=== PATIENT | male | born 1965 | race Two or more races ===

== ENCOUNTER 2024-07-02 18:09 | Inpatient (IN) | payer MEDICARE, OTHER ==
[~2024-07-02] VITALS: Ht 175.3 cm; Wt 117.0 kg
[2024-07-02 19:17] LABS: BASOPHILS # (AUTO) 0.1 K/uL (0.0-0.2); BASOPHILS % (AUTO) 0.5 % (0.0-2.0); EOSINOPHILS # (AUTO) 0.2 K/uL (0.0-0.7); EOSINOPHILS % (AUTO) 1.7 % (0.0-6.0); HEMATOCRIT 46 % (39-51); HEMOGLOBIN 15.3 g/dL (13.5-17.5); LYMPHOCYTES # (AUTO) 2.1 K/uL (0.8-4.8); MEAN CORPUSCULAR HEMOGLOBIN 31 PG (26.0-33.0); MEAN CORPUSCULAR HGB CONC 34 g/dl (31.0-36.0); MEAN CORPUSCULAR VOLUME 91 fL (80-96); MONOCYTES # (AUTO) 1.1 K/uL (0.1-1.30); MONOCYTES % (AUTO) 9.5 % (2.0-12.0); NEUTROPHILS # (AUTO) 7.7 K/uL (1.8-8.9); NEUTROPHILS % (AUTO) 69.3 % (43.0-81.0); PLATELET COUNT (AUTO) 268 K/uL (150-450); RED BLOOD CELL COUNT(AUTO) 5.02 MIL/uL (4.5-6.0); RED CELL DISTRIBUTION WIDTH 14.4 % (11.5-15.0); WHITE BLOOD COUNT (AUTO) 11.1 K/uL (4.3-11.0)
[2024-07-02 19:27] LABS: CALCIUM, SERUM 8.7 mg/dL (8.5-10.1); CARBON DIOXIDE 28 mmol/L (21-32); CHLORIDE 107 mmol/L (98-107); CREATININE 0.9 mg/dL (0.6-1.3); GLUCOSE 129 mg/dL (74-106); POTASSIUM 4.3 mmol/L (3.5-5.1); SODIUM SERUM 141 mmol/L (136-145); UREA NITROGEN, BLOOD 15 mg/dL (7-18)
[2024-07-02 19:33] LABS: ALANINE AMINOTRANSFERASE 25 U/L (12-78); ALBUMIN 3.1 g/dL (3.4-5.0); ALCOHOL, BLOOD < 3 mg/dL (0-10); ALKALINE PHOSPHATASE 83 U/L (46-116); ASPARTATE AMINOTRANSFERASE 16 U/L (15-37); BILIRUBIN,DIRECT 0.1 mg/dL (0.0-0.2); BILIRUBIN,TOTAL 0.5 mg/dL (0.2-1.0); TOTAL PROTEIN, SERUM 6.4 g/dL (6.4-8.2)
[2024-07-02 19:39] LABS: ACETAMINOPHEN <10 ug/ml (10-30); SALICYLATE 0.9 mg/dL (2.8-20.0)
[2024-07-02 20:14] LABS: APPEARANCE,URINE Slightly Cloudy (CLEAR); BILIRUBIN,URINE Negative (NEGATIVE); BLOOD, URINE Moderate Ery/uL (NEGATIVE); COLOR,URINE YELLOW (YELLOW); KETONES,URINE Trace mg/dL (NEGATIVE); LEUKOCYTE ESTERASE ,URINE Negative (NEGATIVE); NITRITE, URINE Negative (NEGATIVE); PH,URINE 8.5 (5.0-8.0); PROTEIN,URINE Negative (NEGATIVE); UGLUCOSE Negative (NEGATIVE)
[2024-07-02 20:19] LABS: ADD URINE CULTURE NO; BACTERIA,URINE 1+ /HPF (None Seen); SQUAMOUS EPITHELIAL CELL,UR None Seen /HPF (None Seen)
[2024-07-02 20:24] LABS: AMPHETAMINE, URINE NEGATIVE (NEGATIVE); BARBITURATE, URINE NEGATIVE (NEGATIVE); BENZODIAZEPINE, URINE NEGATIVE (NEGATIVE); CANNABINOID, URINE NEGATIVE (NEGATIVE); COCCAINE, URINE NEGATIVE (NEGATIVE); OPIATE, URINE NEGATIVE (NEGATIVE); PHENCYCLIDINE SCREEN,URINE NEGATIVE (NEGATIVE)
[2024-07-02] MEDS ORDERED: CEFTRIAXONE 1GM BAG (ER ONLY) 50 ML IV ONE (21:10)
[2024-07-02] MEDS: CEFTRIAXONE 1 G in IV D5W 50 ML IV ONE (21:11)
[2024-07-03] MEDS ORDERED: METO50TA16 PO (07:35)
[2024-07-03] MEDS ORDERED: NA P133E RC (07:35)
[2024-07-03] MEDS ORDERED: VITA400C74 PO (07:35)
[2024-07-03] MEDS ORDERED: ASPI-992 PO (07:35)
[2024-07-03] MEDS ORDERED: LORA-258 PO (07:35)
[2024-07-03] MEDS ORDERED: DOCU100T2 PO (07:35)
[2024-07-03] MEDS ORDERED: PANT40TA2 PO (07:35)
[2024-07-03] MEDS ORDERED: BISA10SU11 RC (07:35)
[2024-07-03] MEDS ORDERED: ACET-868 PO (07:35)
[2024-07-03] MEDS ORDERED: BENZ0.5T43 PO (07:35)
[2024-07-03] MEDS ORDERED: MAGN400O6 PO (07:35)
[2024-07-03] MEDS ORDERED: DIVA-76 PO (07:35)
[2024-07-03] MEDS ORDERED: MAGNESIUM HYDROXIDE 30 ML UDC PO PRN (10:00)
[2024-07-03] MEDS ORDERED: MAG HYDROX/AL HYDROX/SIMETH 30 ML UDC PO PRN (10:00)
[2024-07-03] MEDS ORDERED: ACETAMINOPHEN 325 MG TABLET PO PRN (10:00)
[2024-07-03] MEDS: BLOOD SUGAR DIAGNOSTIC 1 EACH STRIP IN ONE (10:00)
[2024-07-03 10:24] VITALS: BP 144/93; TEMP 98.1; O2SAT 98
[2024-07-03] MEDS: DOCUSATE SODIUM 100 MG CAPSULE PO SCH (14:36)
[2024-07-03] MEDS: METOPROLOL TARTRATE 50 MG TABLET PO SCH (14:36)
[2024-07-03] MEDS: ASPIRIN 325 MG TABLET PO SCH (14:36)
[2024-07-03 16:00] VITALS: BP 113/88; TEMP 98.6; O2SAT 98
[2024-07-03] MEDS: BENZTROPINE MESYLATE (1 MG) 1 MG TABLET PO SCH (17:34)
[2024-07-03] MEDS: VITAMIN E 400 UNIT CAPSULE PO SCH (18:00)
[2024-07-03] MEDS: PANTOPRAZOLE 40 MG TABLET.DR PO SCH (18:06)
[2024-07-03] MEDS: DIVALPROEX SODIUM 125 MG TABLET.DR PO SCH (21:42)
[2024-07-03] MEDS: risperiDONE 0.25 MG TABLET PO SCH (21:42)
[2024-07-04 07:38] LABS: ALBUMIN 3.4 g/dL (3.4-5.0); BILIRUBIN,TOTAL 0.7 mg/dL (0.2-1.0); CALCIUM, SERUM 8.4 mg/dL (8.5-10.1); CREATININE 0.8 mg/dL (0.6-1.3); POTASSIUM 4.3 mmol/L (3.5-5.1); TOTAL PROTEIN, SERUM 6.8 g/dL (6.4-8.2)
[2024-07-04 07:42] LABS: CHOLESTEROL 151 mg/dL (<200); HDL CHOLESTEROL 34 mg/dL (40-60); LDL 110 mg/dL (0-99); TRIGLYCERIDES 151 mg/dL (30-150)
[2024-07-04 08:00] VITALS: BP 113/78; TEMP 98.4; O2SAT 97
[2024-07-04 16:00] VITALS: BP 115/94; TEMP 98.8; O2SAT 97
[2024-07-04 20:59] VITALS: BP 118/52; TEMP 98.3; O2SAT 100
[2024-07-05 08:00] VITALS: BP 124/98; TEMP 98.7; O2SAT 98
[2024-07-05] MEDS: DIVALPROEX SODIUM 125 MG TABLET.DR PO SCH (13:35)
[2024-07-05 16:00] VITALS: BP 154/93; TEMP 98.1; O2SAT 98
[2024-07-05] MEDS: risperiDONE 0.25 MG TABLET PO SCH (21:08)
[2024-07-05 22:34] VITALS: BP 115/83; TEMP 98.2; O2SAT 98
[2024-07-06 08:00] VITALS: BP 119/89; TEMP 98.6; O2SAT 98
[2024-07-06 16:00] VITALS: BP 105/68; TEMP 98.6; O2SAT 99
[2024-07-06 20:00] VITALS: BP 113/79; TEMP 98.6; O2SAT 97
[2024-07-06] MEDS: CEPHALEXIN MONOHYDRATE 500 MG CAPSULE PO SCH (21:09)
[2024-07-07 08:00] VITALS: BP 121/84; TEMP 97.9; O2SAT 99
[2024-07-07 16:14] VITALS: BP 118/97; TEMP 97.5; O2SAT 97
[2024-07-07] MEDS: BENZTROPINE MESYLATE (1 MG) 1 MG TABLET PO SCH (17:16)
[2024-07-07 20:00] VITALS: BP 127/92; TEMP 99.1; O2SAT 97
[2024-07-07] MEDS: risperiDONE 0.25 MG TABLET PO SCH (21:42)
[2024-07-08 08:00] VITALS: BP 115/88; TEMP 98; O2SAT 97
[2024-07-08 16:00] VITALS: BP 112/92; TEMP 98; O2SAT 98
[2024-07-08 20:00] VITALS: BP 114/75; TEMP 98.1; O2SAT 96
[2024-07-09 08:00] VITALS: BP 135/86; TEMP 98; O2SAT 100
[2024-07-09 16:00] VITALS: BP 114/81; TEMP 97.7; O2SAT 98
[2024-07-09 20:00] VITALS: BP 116/63; TEMP 98.1; O2SAT 98
[2024-07-09] MEDS: DIVALPROEX SODIUM 125 MG TABLET.DR PO SCH (21:24)
[2024-07-09 21:50] VITALS: BP 116/63; TEMP 98.1; O2SAT 98
[2024-07-10 08:00] VITALS: BP 103/72; TEMP 97.9; O2SAT 100
[2024-07-10] MEDS: risperiDONE 1 MG TABLET PO SCH (08:43)
[2024-07-10 16:00] VITALS: BP 121/80; TEMP 98; O2SAT 98
[2024-07-10 20:59] VITALS: BP 98/64; TEMP 98.1; O2SAT 98
[2024-07-11 08:14] VITALS: BP 117/99; TEMP 97.8; O2SAT 97
[2024-07-11 16:22] VITALS: BP 102/68; TEMP 97.8; O2SAT 96
[2024-07-11 20:34] VITALS: BP 111/85; TEMP 97.9; O2SAT 96
[2024-07-12 08:00] VITALS: BP 112/79; TEMP 98.7; O2SAT 98
[2024-07-12 16:00] VITALS: BP 106/72; TEMP 97.9; O2SAT 98
[2024-07-12 21:41] VITALS: BP 115/64; TEMP 98.6; O2SAT 97
[2024-07-13 08:00] VITALS: BP 125/95; TEMP 97.7; O2SAT 99
[2024-07-13] MEDS: DIVALPROEX SODIUM 125 MG TABLET.DR PO SCH (14:04)
[2024-07-13 16:17] VITALS: BP 116/81; TEMP 98.3; O2SAT 98
[2024-07-13 20:49] VITALS: BP 107/57; TEMP 98.5; O2SAT 99
[2024-07-14 08:00] VITALS: BP 100/67; TEMP 98.2; O2SAT 97
[2024-07-14 16:00] VITALS: BP 124/85; TEMP 97.8; O2SAT 100
[2024-07-14 20:00] VITALS: BP 110/60; TEMP 97.9; O2SAT 98
[2024-07-14] MEDS: risperiDONE 1 MG TABLET PO SCH (20:59)
[2024-07-15 08:00] VITALS: BP 127/93; TEMP 97.8; O2SAT 100
[2024-07-15 16:00] VITALS: BP 109/74; TEMP 97.7; O2SAT 98
[2024-07-15 20:00] VITALS: BP 94/65; TEMP 97.8; O2SAT 98
[2024-07-16 08:00] VITALS: BP 117/60; TEMP 98.8; O2SAT 97
[2024-07-16] MEDS: DIVALPROEX SODIUM 500 MG TABLET.DR PO SCH (08:23)
[2024-07-16 13:00] VITALS: BP 100/62
== END 2024-07-16 14:40 | DRG 885 ==
LOC: ER 18:17 → GPS 07-03 07:43
PROVIDERS: ADMIT Psychiatry & Neurology Psychiatry
DX: F25.9 Schizoaffective disorder, unspecified (principal); N39.0 Urinary tract infection, site not specified; F29 Unspecified psychosis not due to a substance or known physiological condition; K21.9 Gastro-esophageal reflux disease without esophagitis; D72.829 Elevated white blood cell count, unspecified; E11.9 Type 2 diabetes mellitus without complications; F39 Unspecified mood [affective] disorder; I10 Essential (primary) hypertension; Z79.899 Other long term (current) drug therapy; Z87.891 Personal history of nicotine dependence; Z89.611 Acquired absence of right leg above knee; Z20.822 Contact with and (suspected) exposure to COVID-19; F20.0 Paranoid schizophrenia; B96.89 Other specified bacterial agents as the cause of diseases classified elsewhere
CPT/HCPCS: 36415; 80048-TC; 80053-TC; 80061-TC; 80076-TC; 80164-TC; 81001; 85025-TC; G0480; J0696; J7060